=== PATIENT | male | born 1995 | race African-American/Black ===

== ENCOUNTER 2022-02-16 17:43 | Emergency (ER) | payer SELFPAY ==
[~2022-02-16] VITALS: Ht 177.8 cm; Wt 77.0 kg
[2022-02-16 18:06] VITALS: BP 125/56
== END 2022-02-16 19:25 | disposition left against medical advice (07) ==
LOC: ER 17:43
DX: Z53.21 Procedure and treatment not carried out due to patient leaving prior to being seen by health care provider (principal)